=== PATIENT | female | born 1940 | race Two or more races ===

== ENCOUNTER 2023-07-28 07:18 | Emergency (ER) | payer OTHER ==
[~2023-07-28] VITALS: Ht 147.3 cm; Wt 61.7 kg
[2023-07-28] MEDS ORDERED: AMBIEN10 MG (07:33)
[2023-07-28] MEDS ORDERED: NORVASC2.5 MG PO (07:33)
[2023-07-28] MEDS ORDERED: CRESTOR10 MG PO (07:33)
[2023-07-28] MEDS ORDERED: PROTONIX40 MG (07:34)
== END 2023-07-28 10:30 | disposition home or self-care (01) ==
LOC: ER 07:19
DX: J06.9 Acute upper respiratory infection, unspecified (principal); Z88.8 Allergy status to other drugs, medicaments and biological substances